=== PATIENT | male | born 1960 | race African-American/Black ===

== ENCOUNTER 2021-12-22 09:34 | Emergency (ER) | payer SELFPAY ==
[~2021-12-22] VITALS: Ht 185.4 cm; Wt 93.0 kg
[~2021-12-22 09:34] MED LIST: AMLO-187 PO; CEFD300C PO; DOXY100T PO; HYDR-2765 PO; HYDR-2767 PO
[2021-12-22 09:45] VITALS: BP 194/81
[2021-12-22] MEDS ORDERED: IV NORMAL SALINE 1000ML BAG 1,000 ML IV ONE (10:30)
[2021-12-22] MEDS ORDERED: fentaNYL PF VIAL 100 MCG/2 ML VIAL IV ONE (10:45)
--- NOTE | 2021-12-22 10:52 | RAD ---
EXAM: Left lower extremity arterial Doppler sonogram. HISTORY: Pain. Peripheral vascular disease. Atherosclerosis. TECHNIQUE: Quinn scale and color Doppler sonographic imaging of the lower extremity arteries with spec tral waveform analysis was performed. COMPARISON: None. FINDINGS: There are normal triphasic waveforms throughout the lower extremity arteries, with exceptio n of a biphasic waveform within the dorsalis pedis artery. There are normal peak systolic velocities throughout the lower extremity arteries. IMPRESSION: No Doppler evidence of hemodynamically significant stenosis or arterial occlusion. Electronically signed by: Carmita Hylton MD (12/22/2021 10:50 AM) [id number]
[2021-12-22] MEDS ORDERED: IOHEXOL 300 MG/ML 100ML VIAL. IV ONE ×2 (11:00→12:00)
--- NOTE | 2021-12-22 11:19 | PHYS DOC ---
Past Medical History Past Medical History: Hypertension Past Surgical History: Appendectomy, Other Additional Past Surgical Histo: 3rd digit of L foot amputation Smoking Status: Current Every Day Smoker Alcohol Use: None Drug Use: None General Adult EDM: Chief Complaint: FOOT INJURY PAIN HPI: HPI: Mr. Rivera is a 61 yo male with PMH of HTN and 3rd digit (L foot) amputation who presents to the ED for Left foot pain. Patient states that the pain initially started on the 2nd digit of L foot early November but in the past two week the foot pain has worsened and progressed to the whole foot. These symptoms are similar to symptoms that lead to his amputation last year and he is concerned he will lose that toe as well. Patient characterizes the pain as a throbbing sharp pain that worsens with applied pressure. Currently he rates the pain as a 10/10 on the pain scale. His pain is alleviated by leaving his leg hanging of the bed and is showing mild relief with tylenol. Patient has noticed that his left extremity feels "colder when compared to right foot" and there has been discoloration of the left foot. In addition to his primary chief complaint, patient endorses LLQ abdominal pain that is sharp in nature, fever, chills and hip pain (chronic in nature). Patient denies any history of sickle cell disease Patient is vaccinated for COVID. Review of Systems: Review of Systems: Constitutional: Endorses fever or chills Eyes: Denies redness or eye pain HENT: Denies nasal congestion or sore throat Respiratory: Denies cough or shortness of breath Cardiovascular: Endorses chest pain or palpitations GI: Endorses abdominal pain; denies nausea, or vomiting : Denies dysuria or hematuria Musculoskeletal: Denies back pain or joint pain; endorses left foot pain Integument: Denies rash or skin lesions Neurologic: Denies headache, focal weakness or sensory changes Complete systems were reviewed and found to be within normal limits, except as documented in this note. Heart Score: C/O Chest Pain: Yes HEART Score for Chest Pain: HEART Score for Chest Pain Response (Comments) Value History Moderately Suspicious 1 Age >45 - < 65 1 Risk Factors 1 or 2 Risk Factors 1 Total 3 Risk Factors: Risk Factors: DM, Current or recent (<one month) smoker, HTN, HLP, family history of CAD, obesity. Risk Scores: Score 0 - 3: 2.5% MACE over next 6 weeks - Discharge Home Score 4 - 6: 20.3% MACE over next 6 weeks - Admit for Clinical Observation Score 7 - 10: 72.7% MACE over next 6 weeks - Early Invasive Strategies Current Medications: Current Medications Medications (Trade) Dose Ordered Sig/Juwan Start Time Stop Time Status Last Admin Dose Admin Sodium Chloride 1,000 ml @ 1,000 mls/hr 1X ONCE 12/22/21 10:30 12/22/21 11:29 UNV Allergies: Allergies: Allergies Coded Allergies Type Severity Reaction Last Updated Verified lisinopril Allergy Severe angioedema 07/17/21 Yes Penicillins Allergy Intermediate Rash 07/17/21 Yes Physical Exam: PE: Constitutional: Well developed, well nourished, no acute distress, non-toxic appearance HENT: Normocephalic, atraumatic Eyes: PERRL, EOMI, conjunctiva normal, no discharge Neck: Normal range of motion, no tenderness, supple Lungs & Thorax: No respiratory distress, equal chest rise and fall Abdomen: No erythema, normoactive bowel sounds, LLQ tenderness upon deep palpation Skin: Warm, dry, no erythema, no rash Back: No tenderness, no CVA tenderness Extremities: Left lower extremity tenderness, ROM decreased on L extremity, no edema, amputation of 3rd digit on LLE, pedal pulses decreased on LLE in comparison to RLE Neurologic: Alert and oriented X 3, normal motor function, normal sensory function, no focal deficits noted Psychologic: Affect normal, judgment normal Current Patient Data: Vital Signs: Vital Signs Date Time Temp Pulse Resp B/P (MAP) Pulse Ox O2 Delivery O2 Flow Rate FiO2 12/22/21 09:45 97.9 96 16 194/81 (118) 97 Room Air 97.9 EKG: EKG: @10:47 Normal sinus rhythm, Regular rate (64bpm), QRS 84ms, QT/QTC (386/402ms), J point elevation in V2-V6, No ST segment elevations Radiology/Procedures: Radiology/Procedures: [] Impression: EXAM: Left lower extremity arterial Doppler sonogram. HISTORY: Pain. Peripheral vascular disease. Atherosclerosis. TECHNIQUE: Quinn scale and color Doppler sonographic imaging of the lower e xtremity arteries with spectral waveform analysis was performed. COMPARISON: None. FINDINGS: There are normal triphasic waveforms throughout the lower extremity arteries, with exception of a biphasic waveform within the dorsalis pedis artery. There are normal peak systolic velocities throughout the lower extremity arteries. IMPRESSION: No Doppler evidence of hemodynamically significant stenosis or arterial occlusion. Electronically signed by: Carmita Hylton MD (12/22/2021 10:50 AM) [id number] Course & Med Decision Making: Course & Med Decision Making Mr. Rivera is a 61 yo male with PMH of HTN and 3rd digit (L foot) amputation who presents to the ED for Left foot pain. Patient's Left lower extremity symptoms seem similar to his symptoms from last year and with his presentation of decreased pulses, constant pain and cooler extremity there is a concern for peripheral artery disease. While in the ED patient also complained of recent abdominal pain and endorsed LLQ abdominal tenderness with guarding. Ultimately, an EKG, BOO of LLE, CBC, CMP, X-Ray of LLE and CT abdomen was ordered to address his symptoms. CBC and CMP was significant for mild hypocalcemia while lower extremity duplex displayed no Doppler evidence of hemodynamically significant stenosis or arterial occlusion. X-ray of LLE did not display any signs of osteomyelitis. For his LLE presentation patient will likely require an outpatient follow up with vascular surgery and orthopedics follow up. As for the abdominal pain, a CT Chest and abdomen displayed a 3 mm left lower lobe pulmonary nodule that is likely benign in addition to pulmonary opacities. No acute finding involving the abdomen or pelvis were found. Ultimately patient is cleared for discharged and prescribed an hydrocodone. Patient stable for discharge with outpatient follow-up with PCP. Discussed findings and plan with patient, who acknowledges understanding and agreement. Pertinent Labs and Imaging studies reviewed with patient. (See chart for details) Marinaon Disclaimer: Yovani Disclaimer: This electronic medical record was generated, in whole or in part, using a voice recognition dictation system. Departure Departure Impression: Primary Impression: Left foot pain Additional Impressions: Bronchitis Abdominal pain Qualified Codes: R10.32 - Left lower quadrant pain Pulmonary nodule Disposition: HOME / SELF CARE / HOMELESS Condition: STABLE Referrals: NO PCP (PCP) JUS VAIL MD, AXEL DO WILKINSON, EVERETT J Jr. DO YANG, ZHIPENG DPM Patient Instructions: Abdominal Pain (Nonspecific), Acute Bronchitis, [id number], Pain of Unknown Etiology (Pain without a known Cause) Scripts Hydrocodone Bit/Acetaminophen (HYDROCODONE-APAP 5-325 ) 1 Tab Tablet 0.5-1 TAB PO PRN Q6HRS PRN for PAIN, #14 TAB 0 Refills Prov: ROSALBA PADILLA DO 12/22/21 ROSALBA PADILLA DO Dec 22, 2021 11:19
[2021-12-22 11:26] LABS: BASO % 1 % (0-3); EOS # 0.1 x10^3/uL (0.0-0.7); EOS % 2 % (0-3); HEMATOCRIT 40.1 % (39.0-53.0); HEMOGLOBIN 13.3 g/dL (13.0-17.5); LYMPH % 41 % (24-48); MEAN CORPUSCULAR HEMOGLOBIN 27 pg (25-35); MEAN CORPUSCULAR HGB CONC 33 g/dL (31-37); MEAN CORPUSCULAR VOLUME 80 fL (79-100); MONO # 0.2 x10^3/uL (0.0-1.1); MONO % 4 % (0-9); NEUT # 2.5 x10^3/uL (1.8-7.7); NEUT % 52 % (31-73); PLATELET COUNT 204 x10^3/uL (140-400); RED BLOOD COUNT 5.01 x10^6/uL (4.30-5.70); RED CELL DISTRIBUTION WIDTH 14.1 % (11.5-14.5); WHITE BLOOD COUNT 4.8 x10^3/uL (4.0-11.0)
[2021-12-22 11:45] LABS: INFLUENZA A PATIENT NEGATIVE (NEGATIVE); INFLUENZA B PATIENT NEGATIVE (NEGATIVE)
[2021-12-22 11:51] LABS: CALCIUM 8.4 mg/dL (8.5-10.1); GFR 92.2; POTASSIUM 4.1 mmol/L (3.5-5.1)
[2021-12-22 11:56] LABS: ALBUMIN 3.4 g/dL (3.4-5.0); ALBUMIN/GLOBULIN RATIO 0.9 (1.0-1.7); MAGNESIUM 2.2 mg/dL (1.8-2.4); TOTAL BILIRUBIN 0.1 mg/dL (0.2-1.0); TOTAL PROTEIN 7.4 g/dL (6.4-8.2)
--- NOTE | 2021-12-22 11:59 | RAD ---
EXAM: Left foot, 3 views. HISTORY: Pain. COMPARISON: 07/10/2021 and 07/13/2021 FINDINGS: 3 views of the left foot are obtained. There has been amputation of the third phalanx. Ther e is a tiny ossific density adjacent to the third metatarsal head likely due to a residual bone fragm ent. There is mild first metatarsophalangeal joint osteoarthritis. There is no convincing osteomyelit is. IMPRESSION: 1. Interval amputation of the third toe. There is a suspected tiny bone fragment adjacent to the thir d metatarsal head. 2. No convincing radiographic evidence of osteomyelitis or alternative acute osseous finding. Electronically signed by: Carmita Hylton MD (12/22/2021 11:57 AM) [id number]
[2021-12-22] MEDS ORDERED: CONTRAST GIVEN. MC PRN (12:00)
--- NOTE | 2021-12-22 12:28 | RAD ---
EXAM: Chest, abdomen and pelvis CT with intravenous contrast. HISTORY: Cough. Fever and chills. TECHNIQUE: Computed tomographic images of the chest, abdomen and pelvis were obtained following the a dministration of intravenous contrast. Multiplanar reformatting was performed. *One or more of the following individualized dose reduction techniques were utilized for this examina tion: 1. Automated exposure control. 2. Adjustment of the mA and/or kV according to patient size. 3. Use of iterative reconstruction technique. COMPARISON: 09/19/2016. FINDINGS: Chest: The heart is normal in size. There is calcified atherosclerotic plaque involving the coronary arteries. There is calcification of the aortic valve. The aorta is normal in caliber. There is a common origin of the innominate and left common carotid arteries, a normal aortic arch branchin g variant. No pathologically enlarged mediastinal or hilar lymph node is seen. There is mild emphysema with apical predominant subpleural bleb formation. There is no pneumothorax. There is no pleural effusion. There is bilateral posterior dependent and basilar atelectasis. There i s a 3 mm left lower lobe pulmonary nodule (series 2, image 53). There is mild bronchial wall thickeni ng, or due to the sequela of bronchitis. There is no acute or suspicious osseous finding. Abdomen and pelvis: No hepatic lesion is seen. The gallbladder, pancreas, spleen and adrenal glands a re unremarkable. The kidneys are unremarkable. There is no appendicitis. There is no bowel obstructio n. There is no abnormal bowel wall thickening. The bladder and prostate are unremarkable. The aorta is normal in caliber. There is no lymphadenopathy. There is a tiny fat-containing right ing uinal hernia. There is degenerative change involving the right greater than left hip and throughout t he lumbar spine. There is a transitional lumbosacral segment, a normal variant. There is a lower lumb ar lumbosacral vertebrae, a normal variant. IMPRESSION: 1. Mild emphysema and mild bronchial wall thickening likely due to bronchitis. No focal infiltrate is seen. 2. 3 mm left lower lobe pulmonary nodule. This is likely benign. Follow-up can be performed in one ye ar if there are risk factors for pulmonary neoplasm. 3. No acute finding involving the abdomen or pelvis. Electronically signed by: Carmita Hylton MD (12/22/2021 12:25 PM) [id number]
[2021-12-22 15:23] LABS: BILIRUBIN,URINE NEGATIVE (NEG); CLARITY,URINE CLEAR; COLOR,URINE YELLOW; NITRITE,URINE NEGATIVE (NEG); PH,URINE 5.5 (<5.0-8.0); PROTEIN,URINE NEGATIVE (NEG-TRACE)
[2021-12-22 15:34] LABS: BACTERIA,URINE 0 /HPF (0-FEW); RBC,URINE 0 /HPF (0-2); WBC,URINE 0 /HPF (0-4)
[2021-12-22] MEDS ORDERED: HYDR-2761 PO (16:40)
--- NOTE | 2021-12-22 18:14 | EKG ---
[facility] [address] [place] [id number] Test Date: 2021-12-22 Test Time: 10:47:50 Pat Name: ROSALBA AKBAR Department: Room: Gender: M Deposit Clerk: : [id number] Requested By: ROSALBA PADILLA Order Number: [id number] Reading MD: Wan Andrew Measurements Intervals [place] Rate: 64 P: 54 MO: 172 QRS: -46 QRSD: 84 T: 26 QT: 386 QTc: 402 Interpretive Statements SINUS RHYTHM ABNORMAL LEFT AXIS DEVIATION LEFT ANTERIOR FASCICULAR BLOCK Electronically Signed On 12-24-2021 9:28:25 PROCESS DEVELOPMENT ENGINEER by Wan Andrew
--- NOTE | 2021-12-25 10:28 | NUR ---
IP: Attempted to contact pt concerning covid results. Left a message with to have pt retrun the call.
--- NOTE | 2021-12-25 17:25 | NUR ---
IP: Pt returned my call. Informed him of negative covid results. he verbalized understanding.
== END 2021-12-22 16:48 | disposition home or self-care (01) ==
LOC: ER 09:34
DX: M79.672 Pain in left foot (principal); J40 Bronchitis, not specified as acute or chronic; R10.32 Left lower quadrant pain; R91.1 Solitary pulmonary nodule; Z20.822 Contact with and (suspected) exposure to COVID-19; I10 Essential (primary) hypertension; F17.200 Nicotine dependence, unspecified, uncomplicated
CPT/HCPCS: 36415; 71260; 73630; 74177; 80053; 81001; 82553; 83605; 83690; 83735; 84484; 84550; 85025; 85651; 86140; 87428; 93005; 93926; 96361; 96374; 99285; J3010; J7030; Q9967; U0003; U0005